=== PATIENT | male | born 1965 | race Two or more races ===

== ENCOUNTER 2021-12-16 00:18 | Emergency (ER) | payer MEDICAID ==
[~2021-12-16] VITALS: Ht 170.2 cm; Wt 93.0 kg
--- NOTE | 2021-12-16 00:45 | NUR ---
TO ER BED 3. BIBS C/O FREQUENT URINATION X 1 MONTH AND GROIN PAIN X 3 DAYS. TOOK TYLENOL WITH LITTLE RELIEF. PAIN WORSE WITH MOVEMENT. DENIES ANY PAINFUL URINATION. CHANGED INTO GOWN. CONNECTED TO MONITOR. AWAITING MD YUN
--- NOTE | 2021-12-16 01:06 | NUR ---
URINE SAMPLE COLLECTED AND SENT TO LAB
--- NOTE | 2021-12-16 01:11 | NUR ---
PT TAKEN FOR CT SCAN
[2021-12-16 01:20] LABS: BILIRUBIN,URINE NEGATIVE (NEGATIVE); COLOR,URINE YELLOW (YELLOW); LEUKOCYTE ESTERASE ,URINE NEGATIVE (NEGATIVE); NITRITE, URINE NEGATIVE (NEGATIVE); PROTEIN,URINE NEGATIVE (NEGATIVE); UGLUCOSE NEGATIVE (NEGATIVE); UROBILINOGEN,URINE 0.2 EU/dL (0.2)
--- NOTE | 2021-12-16 05:24 | NUR ---
Patient discharged to home in stable condition. Written and verbal after care instructions given. Patient verbalizes understanding of instruction.
[2021-12-16 05:25] VITALS: BP 139/94
== END 2021-12-16 05:25 | disposition home or self-care (01) ==
LOC: ER 00:20
DX: R10.31 Right lower quadrant pain (principal); R10.32 Left lower quadrant pain
CPT/HCPCS: 72192-TC; 73521